=== PATIENT | female | born 1935 | race Caucasian/White ===

== ENCOUNTER 2020-06-17 21:13 | Emergency (ER) | payer MEDICARE, OTHER, SELFPAY ==
[2020-06-17 21:13] VITALS: BP 137/100; PULSE 87; RESP 18; TEMP 36.1; O2SAT 97; BMI 29.2
--- NOTE | 2020-06-17 22:19 | RAD_ITS ---
STUDY: X-RAY - PELVIS AND LEFT HIP REASON FOR EXAM: Female, 85 years old. FALL, LEFT HIP PAIN. TECHNIQUE: 3 views of the pelvis and hip. COMPARISON: None. FINDINGS: There is a non-specific bowel gas pattern. Normal visualized soft tissue structures. There is narrowing with cortical sclerosis and osteophyte formation of the sacroiliac joint consistent with degenerative osteoarthritic changes. Normal bilateral superior and inferior pubic rami. There are degenerative changes of the pubic symphysis with articular narrowing and sclerosis. Normal bilateral ischial tuberosities. Severe narrowing of the left hip. Normal right hip joint space. No visualized acute fracture. No osteonecrosis. RAD/HIP, UNI W/ Pelvis 2-3 Views IMPRESSION: No visualized acute fracture Electronically Signed: Luciano Montez MD at 22:43 EST , Service support ,
--- NOTE | 2020-06-17 23:06 | ED.VIS.GEN ---
History of Present Illness Chief Complaint: Lower Extremity Injury Informant: Patient Narrative: 85-year-old female sustained a fall in which she landed on her left buttock/hip region. She has been able to bear weight though does note that it is painful. She reports not taking anything despite the pain. She did not strike her head. No upper back or neck pain. No deformities noted. Her daughter brought her to the hospital. Past Medical History - Allergies and Home Meds Allergies/Adverse Reactions: Allergies Sulfa (Sulfonamide Antibiotics) Adverse Reaction (Verified 06/17/20 21:15) Rash Primary Care Physician: Lucio Denise III, MD [Primary Care Provider] - Smoking Status: Never smoker Review of Systems General: Denies: Chills, Fever, Sweats Eyes: Denies: Visual changes - bilaterally, Diplopia ENT: Denies: Rhinorrhea, Sore throat Cardiovascular: Denies: Chest pain, Palpitations Respiratory: Denies: Dyspnea, Cough, Dyspnea on exertion Gastrointestinal: Denies: Abdominal pain, Nausea, Vomiting, Diarrhea, Melena, Hematochezia Genitourinary: Denies: Dysuria, Hematuria, Frequency Musculoskeletal: Reports: Extremity Pain. Denies: Back pain Skin: Denies: Rash, Wounds Neurological: Denies: Headache, Weakness, Numbness Physical Exam Vital Signs/Narrative: Vital Signs Temp Pulse Resp BP Pulse Ox 06/17/20 21:13 96.9 F L 87 18 137/100 H 97 Inital Vital Signs reviewed: Yes General: Well nourished, Well developed, No Acute Distress Head: Normocephalic, Atraumatic Eyes: Perrl, EOMI ENT: Moist mucous membranes, No rhinorrhea Neck: Supple, Nontender Cardiovascular: Regular rate, Regular rhythm, No murmurs Respiratory: No distress, CTA bilaterally, Chest nontender Abdomen: Soft, Nontender, Nondistended, Normal bowel sounds Back: Nontender, Normal Inspection Extremities: No edema, Tenderness - To palpation in the right buttock/ischial tuberosity. No pain with logroll of the leg. No obvious deformities or shortening or rotation. Skin: Normal color, No rash Neurological: Alert, Oriented x3, Cranial nerves II-XII grossly intact, Normal Strength, Normal Sensation Psychological: Normal affect, Normal Mood Diagnostic/Tx/Re-eval Clinical Impression(s) from Imaging Studies Hip/Pelvis X-Ray 06/17/20 22:19 IMPRESSION: No visualized acute fracture Electronically Signed: Luciano Montez MD at 22:43 EST , Service support , - Medical Decision Making My interpretation of the plain films of the left hip and pelvis are negative for fracture. Noted degenerative changes. Radiology concurs. Patient received Tylenol for pain. She will be discharged home with supportive care return if worsening or concerns ED Disposition - Plan for ED Patient: Disposition: Home or Assisted Living Diagnosis: Contusion of left hip Instructions: ED Soft Tissue Contusion Referrals: Lucio Denise III, MD [Primary Care Provider] - 1 Week if not improving
[2020-06-17] MEDS: Acetaminophen 500 MG Tablet 1000 MG PO (23:17)
[2020-06-17 23:23] VITALS: BP 128/72; PULSE 78; RESP 18; O2SAT 96
== END 2020-06-17 23:23 | disposition home or self-care (01) ==
PROVIDERS: Emergency Provider Emergency Medicine; PCP Family Medicine
DX: S70.02XA Contusion of left hip, initial encounter (principal); W19.XXXA Unspecified fall, initial encounter; Y93.9 Activity, unspecified; Y92.9 Unspecified place or not applicable
CPT/HCPCS: 73502; 99283

== ENCOUNTER 2023-06-09 07:49 | Emergency (ER) | payer MEDICARE, OTHER, SELFPAY ==
[2023-06-09 07:49] VITALS: BP 153/69; PULSE 85; RESP 14; TEMP 36.5; O2SAT 97
--- NOTE | 2023-06-09 08:30 | RAD_ITS ---
STUDY: X-RAY - LEFT FOOT CLINICAL: Female, 88 years old. Pain. TECHNIQUE: 3 views of the left foot. COMPARISON: None. FINDINGS: Intact talus, calcaneus, and tarsal bones. Normal visualized subtalar, talonavicular, calcaneocuboid, tarsal and tarsometatarsal articulations. Normal metatarsi. There is mild degenerative arthrosis of the metatarsophalangeal joint of the hallux, with small subchondral cyst formation at the base of the first proximal phalanx. Normal tibial and fibular sesamoid bones. Normal interphalangeal joint of the great toe. Normal phalanges of the great toe. Normal second through fifth metatarsophalangeal joints. Normal interphalangeal joints and phalanges of the lesser toes. The soft tissue structures are unremarkable. There is no demonstrated fracture. 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 No demonstrated fracture. Electronically Signed: Ryder Villagomez MD at 8:51 EST ,
--- NOTE | 2023-06-09 10:01 | EX.ED.DYSGE1 ---
HPI History of Present Illness Chief Complaint: Lower Extremity Injury Narrative Narrative: Patient is a 88-year-old female who is presenting to the ER today with chief complaint of left foot pain. Patient woke up Wednesday morning having pain over the dorsal aspect of her left foot. Patient has redness noted as well. Patient does not have much pain to bilateral ankles. Patient does not recall any type of injury to the left foot that occurred Wednesday. Patient has some mild redness to the area. Patient does have moderate pain with light palpation to the area. No history of gout. She has no left hip pain, no left knee pain, no other acute complaints. No fever or chills. Patient does not recall any type of injury. Patient daughter and at bedside. Patient does use a walker at home. Patient normally uses a walker at baseline. No acute complaints PFSH PFSH Home Medications oxybutynin chloride 5 mg tablet 10 mg PO DAILY 06/17/20 [History Last Taken Unknown] colchicine 0.6 mg tablet 0.6 mg PO TID PRN gouty foot pain #7 tabs 06/09/23 [Rx Last Taken Unknown] indomethacin 50 mg capsule 50 mg PO TID PRN left foot pain #20 caps 06/09/23 [Rx Last Taken Unknown] Allergy/AdvReac Type Severity Reaction Status Date / Time Sulfa (Sulfonamide AdvReac Rash Verified 06/09/23 07:51 Antibiotics) Social History Smoking Status: Never smoker ROS ROS ED ROS Narrative REVIEW OF SYSTEMS: Unless otherwise stated in this report the patient's positive and negative responses for review of systems for constitutional, eyes, ENT, cardiovascular, respiratory, gastrointestinal, neurological, , musculoskeletal, and integument systems and related systems to the presenting problem are either stated in the history of present illness or were not pertinent or were negative for the symptoms and/or complaints related to the presenting medical problem. EXAM Physical Exam Narrative Exam Narrative: Vital signs reviewed and patient is not hypoxic. General: The patient appears well and in no apparent distress. Patient is resting comfortably on cart. Not toxic, lethargic, or listless. Skin: Warm, dry, no pallor noted. There is no rash noted. Head: Normocephalic, atraumatic Eye: Normal conjunctiva, no drainage, EOMI. PERRL. Ears, Nose, Mouth, and Throat: oral mucosa is moist. Nares patent. Mouth without vesicles. Cardiovascular: Regular Rate and Rhythm, no murmurs, gallops, or rubs Respiratory: Patient is in no distress, no accessory muscle use, lungs are clear to auscultation, no wheezing, rales or rhonchi Back: non-tender, no CVA tenderness bilaterally to percussion. NO CTLS midline or paraspinal tenderness to palpation. GI: Soft, no tenderness Musculoskeletal: The patient has full range of motion of all extremities and joints with no difficulty except for the left foot. Patient has mild redness to the lateral dorsal aspect of the midfoot to the left foot. Patient has moderate pain with very light palpation to the area. Patient has no tenderness to palpation to the medial or lateral malleolus. Left Achilles tendon is intact. Full range of motion of left knee and left hip with no difficulty. Patient has no pain to palpation the left 5 toes. Patient is neurovascular intact distally to the left foot. Patient has no motor, no sensory deficits. Neurological: A&O x4, normal speech, no focal neurological deficits. Psychiatric: Cooperative Const Vital Signs: 06/09/23 07:49 Temperature 97.7 F L Temperature Source Temporal Pulse Rate 85 Respiratory Rate 14 Blood Pressure 153/69 H Blood Pressure Mean 97 Pulse Ox 97 Oxygen Delivery Method Room Air MDM MDM MDM Narrative Medical decision making narrative: Left foot x-ray was read by Dr. Kan. No acute findings. Procedure note: Louis wrap and postop shoe were applied to the left foot. Splint was assisted with Dr. Kan. The patient was neurovascular intact before and after the splint was placed. The affected bones/injured area had proper alignment in a splint. Education on splint care at home was given at bedside. Patient and family had no questions at disposition. Patient was instructed on using ice, also prescribed Indocin for anti-inflammatories. Patient was also given colchicine prescription short-term. Patient is acting clinically like gouty arthritis. Education was done ankle arthritis and left foot sprain. Patient does have a walker that she can use at home. Patient will continue using walker, symptomatic treatment. Patient will call today with PCP to make an appointment for next week. If no improvement she will have follow-up. No questions from patient, and daughter at bedside Radiography X-Ray: Read by ED Physician (Left foot x-ray shows no acute fracture, dislocation, or acute abnormality. 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 No demonstrated fracture. Electronically Signed: Ryder Villagomez MD at 8:51 EST Reading Location ID and State: [facility] / [place] , Service support , Discharge Plan Triage Chief Complaint: Lower Extremity Injury ED Provider: Jack Kan Dx/Rx/DC Orders Clinical Impression: Foot joint pain Instructions: ED Foot Sprain, ED Gout Prescriptions: New indomethacin 50 mg capsule 50 mg PO TID PRN (Reason: left foot pain) Qty: 20 0RF Rx Instructions: administer with food or milk colchicine 0.6 mg tablet 0.6 mg PO TID MDD max 3 daily PRN (Reason: gouty foot pain) Qty: 7 0RF No Action oxybutynin chloride 5 MG tablet 10 mg PO DAILY Primary Care Provider: Alexandro Ron Referrals: Alexandro Ron MD [Primary Care Provider] - Activity Restrictions/Additional Instructions: Information was given to you on gal for educational purposes only. Patient also was given information on foot sprain for educational purposes only. Use your Louis wrap and postop shoe for the next 3 to 5 days. Use anti-inflammatories as needed, use colchicine as needed for possible Gouty arthritis. If no improvement by next Wednesday or Wednesday, follow-up with PCP. Call your PCP today to make an appointment for next Wednesday or Wednesday Disposition Disposition: Home, Self Care
[2023-06-09 10:07] VITALS: PULSE 88; RESP 21; O2SAT 97; BMI 35.6
== END 2023-06-09 10:09 | disposition home or self-care (01) ==
PROVIDERS: Emergency Provider Emergency Medicine; PCP Family Medicine; Referring Provider Emergency Medicine; Visit Provider Emergency Medicine
DX: M25.572 Pain in left ankle and joints of left foot (principal)
CPT/HCPCS: 29515; 73630; 99282